=== PATIENT | female | born 1975 | race Caucasian/White ===

== ENCOUNTER 2018-10-10 16:30 | Emergency (ER) | payer MEDICAID ==
[2018-10-10 19:22] VITALS: BP 120/76
== END 2018-10-10 19:22 | disposition home or self-care (01) ==
LOC: ED 16:30
DX: G43.909 Migraine, unspecified, not intractable, without status migrainosus (principal); E78.00 Pure hypercholesterolemia, unspecified
CPT/HCPCS: J0780; J1885